=== PATIENT | female | born 2000 | race Caucasian/White ===

== ENCOUNTER 2018-07-10 20:25 | Emergency (ER) | payer SELFPAY ==
[2018-07-10 20:30] VITALS: BP 119/93; PULSE 85; RESP 20; TEMP 37; O2SAT 98
--- NOTE | 2018-07-10 20:36 | W.ED.GENAD ---
Discharge Plan Disposition Patient Disposition: HOME Condition: Fair Discharge Details Chief Complaint: [employer] Clinical Impression: Miscarriage, threatened, early Primary Care Provider: Mitch Huber ED Provider: Brie Keller Home Meds and New Rx's Prescriptions: No Action No Known Home Meds RF: 0 Discharge Instructions Additional Instructions: Please go from here to [facility] where Dr. Warner will preform your ultrasound. You blood type is B negative, Rhogam given while here. Quantitative HcG >48,000. Referrals: Mitch Huber PA [Primary Care Provider] - AURELIO WARNER [ NON-[facility] STAFF PHYSICIAN] - ([phone]) Discharge Data Discharge Date/Time-TO BE ENTERED AT DEPARTURE: 07/10/18 22:56 Medical Decision Making Patient presents today with chief complaint of bleeding in the first trimester . She is endorsing a light bleeding and mild, central cramping. Reports that she has changed a thin pad every few hours. Reports that the bleeding is chlorinator than a typical menses. No pain is elicited on exam. No pain in her back. She is afebrile with stable vital signs. Concern for possible threatened miscarriage versus ectopic . Given the time of night, I am concerned that may not be able to obtain a ultrasound. Will obtain type and screen, CBC, CMP on quantitative hCG. Vaginal exam was performed, small amount of blood was noted in the vaginal vault. No adnexal segment tenderness on bimanual exam. No active bleeding noted from the cervical os. Labs significant for Quantitative HcG >48,000. Patient B negative. Consulted with Dr. Warner at [facility] as patient receives care there. He advised that he is able to do the US tonight at their facility and advised that patient go for imaging. Discussed with the patient who agrees to going there tonight for imaging. Dr. Warner and I discussed patient's blood type, he advised that we give Rhogam dosing here. Patient given IM Rhogam. Will go from here to the [facility] OB unit to have US with Dr. Warner. All of her questions and concerns were addressed, she is in agreement with this plan. HPI General Mode of arrival: ambulatory. Date/Time Provider Initiated Documentation: 07/10/18 20:27. Limitations to Documentation: no limitations. Information obtained by: patient and family. HPI Narrative: Patient is a 17-year-old female presenting today with chief complaint of bleeding in the first trimester . She reports that she is approximately 7 weeks gestation. Had a positive UPT at [facility] in [place] but is not yet had dating ultrasound. Reports that 2 days ago she began noting some mild cramping and light bleeding. Reports that this is persisted but the bleeding has slightly increased today. Still states that the bleeding is less than a period. States the pain is mild and centrally located. It does not radiate into the back. No fevers or chills. Endorses nausea but states that she has been having the nausea along with the . Denies any vomiting. Patient was taking oral contraceptives obtained that she became . Patient has history of gastroparesis from when she was . No other abdominal surgeries. Reports she has chronic issues with constipation but no acute change in bowel habits. No history of ectopic pregnancies. This is patient's first , is unplanned. Related Data Home Medications Medication Instructions Recorded Confirmed Unknown [No Known Home Meds] 07/10/18 07/10/18 Allergies Allergy/AdvReac Type Severity Reaction Status Date / Time No Known Allergies Allergy Unverified 07/10/18 20:33 General Stated Complaint: [employer] SERVANDO: 3 Review of Systems Constitutional Reports as per HPI, Denies chills, Denies fatigue, Denies fever(s) and Denies poor appetite Cardiovascular Denies chest pain and Denies dyspnea Respiratory Denies dyspnea Gastrointestinal Reports as per HPI Genitourinary Reports as per HPI, Denies dysuria, Denies flank pain and Denies urinary urgency Musculoskeletal Reports as per HPI and Denies back pain Integumentary/Breasts Denies rash Endocrine Denies fatigue [facility] Social History Smoking/Tobacco Use Status: Never Exam Const General: cooperative, healthy appearing, comfortable, no acute distress, well developed and well groomed Nutritional Appearance: average body habitus and well nourished Orientation: alert and awake Eyes General: appearance normal, both eyes and all related structures Resp Effort & Inspection: normal respiratory effort, able to speak in complete sentences and no respiratory distress Auscultation: clear to auscultation bilaterally Cardio Rate: regular rate Rhythm: regular rhythm Heart Sounds: S1 normal and S2 normal GI Inspection: abnormal to inspection (patient has a scarred defect centrally, 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 No other incisions noted. ) Palpation: soft, no hepatosplenomegaly, no aortic enlargement, not firm, no guarding, no hernias, not rigid and nontender Auscultation: normal bowel sounds External Female Exam: external appearance normal, normal appearance of the urethra, no tenderness externally, no external swelling, no lesions and No urethral discharge Speculum Exam - Vagina: no lacerations, no lesions, vaginal bleeding (small amount of brown blood noted in the vaginal vault) and No tissue present in vagina Speculum Exam - Cervix: normal appearance of the cervix, No cervical os open, closed cervix and normal vervical discharge Bimanual Exam- Vagina & Uterus: normal bimanual exam, normal cervical palpation (patient is noted to have long cervix), uterus non-tender, no cervical motion tenderness and not enlarged Bimanual Exam- Adnexa, other: normal adnexae, no adnexal masses, no tenderness and No cul-de-sac tenderness OB/External & Speculum: no tissue noted in vagina, No cervical os open and vaginal bleeding (small amount of brown blood noted in the vaginal vault) Back/Spine/Pelvis Back: no CVA tenderness Skin General skin exam: no rashes or lesions noted Lesions: no lesions Rashes: no rashes Neuro General: alert and awake Cognition: normal cognition Speech: speech normal Gait: normal gait Psych Appearance: grossly normal and well kempt Mental Status: mental status grossly normal Speech and Movement: speech and movement normal Mood: congruent mood Affect: normal affect Course Vital Signs Temperature 37 C 07/10/18 20:30 Pulse 85 07/10/18 20:30 Respiratory Rate 20 07/10/18 20:30 Blood Pressure 119/93 H 07/10/18 20:30 Pulse Oximetry 98 07/10/18 20:30 Temperature 37 C 07/10/18 20:30 Temperature Source Skin 07/10/18 20:30 Pulse 85 07/10/18 20:30 Respiratory Rate 07/10/18 20:30 Respiratory Effort Non-Labored 07/10/18 20:32 Blood Pressure 119/93 H 07/10/18 20:30 Blood Pressure Position Sitting 07/10/18 20:30 Pulse Oximetry 98 07/10/18 20:30 Oxygen Delivery Method Room Air 07/10/18 20:30 Oxygen Flow Rate 0 07/10/18 20:30 Pain Level 2 07/10/18 20:30
[2018-07-10 21:17] LABS: Abs Immature Grans 0.02 k/cumm (0.0-0.09); Absolute Basophil Count 0.04 k/cumm (0.0-0.2); Absolute Eosinophil Count 0.08 k/cumm (0.0-0.7); Absolute Lymphocyte Count 2.39 k/cumm (1.2-3.4); Absolute Monocyte Count 0.87 k/cumm (0.11-0.7); Basophils % 0.5; Eosinophils % 0.9; HCT 41.9 % (36.0-46.0); HGB 14.3 g/dL (12.0-15.5); Immature Grans % 0.2; Lymphocytes % 27.5; Mean Corp. HGB Concentration 34.1 g/dL (32.0-36.0); Mean Corpuscular Hemoglobin 28.4 pg (27.0-33.0); Mean Corpuscular Volume 83.3 fL (80-95); Mean Platelet Volume 10.3 fL (8.0-11.0); Neutrophils % 60.9; Platelet Count 277 x1000/uL (130-400); RBC 5.03 m/cumm (4.00-5.20); RBC Distribution Width 13.6 % (11.7-14.6)
--- NOTE | 2018-07-10 21:37 | ED.GENADUL_ITS ---
Discharge Plan Disposition Patient Disposition: HOME Condition: Fair Discharge Details Chief Complaint: [employer] Clinical Impression: Miscarriage, threatened, early Primary Care Provider: Mitch Huber ED Provider: Brie Keller Home Meds and New Rx's Prescriptions: No Action No Known Home Meds RF: 0 Discharge Instructions Additional Instructions: Please go from here to [facility] where Dr. Warner will preform your ultrasound. You blood type is B negative, Rhogam given while here. Quantitative HcG >48,000. Referrals: Mitch Huber PA [Primary Care Provider] - AURELIO WARNER [ NON-[facility] STAFF PHYSICIAN] - ([phone]) Discharge Data Discharge Date/Time-TO BE ENTERED AT DEPARTURE: 07/10/18 22:56 Medical Decision Making Patient presents today with chief complaint of bleeding in the first trimester . She is endorsing a light bleeding and mild, central cramping. Reports that she has changed a thin pad every few hours. Reports that the bleeding is medical lead than a typical menses. No pain is elicited on exam. No pain in her back. She is afebrile with stable vital signs. Concern for possible threatened miscarriage versus ectopic . Given the time of night, I am concerned that may not be able to obtain a ultrasound. Will obtain type and screen, CBC, CMP on quantitative hCG. Vaginal exam was performed, small amount of blood was noted in the vaginal vault. No adnexal segment tenderness on bimanual exam. No active bleeding noted from the cervical os. Labs significant for Quantitative HcG >48,000. Patient B negative. Consulted with Dr. Warner at [facility] as patient receives care there. He advised that he is able to do the US tonight at their facility and advised that patient go for imaging. Discussed with the patient who agrees to going there tonight for imaging. Dr. Warner and I discussed patient's blood type, he advised that we give Rhogam dosing here. Patient given IM Rhogam. Will go from here to the [facility] OB unit to have US with Dr. Warner. All of her questions and concerns were addressed, she is in agreement with this plan. HPI General Mode of arrival: ambulatory . Date/Time Provider Initiated Documentation: 07/10/18 20:27 . Limitations to Documentation: no limitations . Information obtained by: patient and family . HPI Narrative: Patient is a 17-year-old female presenting today with chief complaint of bleeding in the first trimester . She reports that she is approximately 7 weeks gestation. Had a positive UPT at [facility] in [place] but is not yet had dating ultrasound. Reports that 2 days ago she began noting some mild cramping and light bleeding. Reports that this is persisted but the bleeding has slightly increased today. Still states that the bleeding is less than a period. States the pain is mild and centrally located. It does not radiate into the back. No fevers or chills. Endorses nausea but states that she has been having the nausea along with the . Denies any vomiting. Patient was taking oral contraceptives obtained that she became . Patient has history of gastroparesis from when she was . No other abdominal surgeries. Reports she has chronic issues with constipation but no acute change in bowel habits. No history of ectopic pregnancies. This is patient's first , is unplanned. Related Data Home Medications Medication Instructions Recorded Confirmed Unknown [No Known Home Meds] 07/10/18 07/10/18 Allergies Allergy/AdvReac Type Severity Reaction Status Date / Time No Known Allergies Allergy Unverified 07/10/18 20:33 General Stated Complaint: [employer] SERVANDO: 3 Review of Systems Constitutional Reports as per HPI, Denies chills, Denies fatigue, Denies fever(s) and Denies poor appetite Cardiovascular Denies chest pain and Denies dyspnea Respiratory Denies dyspnea Gastrointestinal Reports as per HPI Genitourinary Reports as per HPI, Denies dysuria, Denies flank pain and Denies urinary urgency Musculoskeletal Reports as per HPI and Denies back pain Integumentary/Breasts Denies rash Endocrine Denies fatigue [facility] Social History Smoking/Tobacco Use Status: Never Exam Const General: cooperative, healthy appearing, comfortable, no acute distress, well developed and well groomed Nutritional Appearance: average body habitus and well nourished Orientation: alert and awake Eyes General: appearance normal, both eyes and all related structures Resp Effort & Inspection: normal respiratory effort, able to speak in complete sentences and no respiratory distress Auscultation: clear to auscultation bilaterally Cardio Rate: regular rate Rhythm: regular rhythm Heart Sounds: S1 normal and S2 normal GI Inspection: abnormal to inspection (patient has a scarred defect centrally, 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 No other incisions noted. ) Palpation: soft, no hepatosplenomegaly, no aortic enlargement, not firm, no guarding, no hernias, not rigid and nontender Auscultation: normal bowel sounds External Female Exam: external appearance normal, normal appearance of the urethra, no tenderness externally, no external swelling, no lesions and No urethral discharge Speculum Exam - Vagina: no lacerations, no lesions, vaginal bleeding (small amount of brown blood noted in the vaginal vault) and No tissue present in vagina Speculum Exam - Cervix: normal appearance of the cervix, No cervical os open, closed cervix and normal vervical discharge Bimanual Exam- Vagina & Uterus: normal bimanual exam, normal cervical palpation (patient is noted to have long cervix), uterus non-tender, no cervical motion tenderness and not enlarged Bimanual Exam- Adnexa, other: normal adnexae, no adnexal masses, no tenderness and No cul-de-sac tenderness OB/External & Speculum: no tissue noted in vagina, No cervical os open and vaginal bleeding (small amount of brown blood noted in the vaginal vault) Back/Spine/Pelvis Back: no CVA tenderness Skin General skin exam: no rashes or lesions noted Lesions: no lesions Rashes: no rashes Neuro General: alert and awake Cognition: normal cognition Speech: speech normal Gait: normal gait Psych Appearance: grossly normal and well kempt Mental Status: mental status grossly normal Speech and Movement: speech and movement normal Mood: congruent mood Affect: normal affect Course Vital Signs Temperature 37 C 07/10/18 20:30 Pulse 85 07/10/18 20:30 Respiratory Rate 20 07/10/18 20:30 Blood Pressure 119/93 H 07/10/18 20:30 Pulse Oximetry 98 07/10/18 20:30 Temperature 37 C 07/10/18 20:30 Temperature Source Skin 07/10/18 20:30 Pulse 85 07/10/18 20:30 Respiratory Rate 07/10/18 20:30 Respiratory Effort Non-Labored 07/10/18 20:32 Blood Pressure 119/93 H 07/10/18 20:30 Blood Pressure Position Sitting 07/10/18 20:30 Pulse Oximetry 98 07/10/18 20:30 Oxygen Delivery Method Room Air 07/10/18 20:30 Oxygen Flow Rate 0 07/10/18 20:30 Pain Level 2 07/10/18 20:30
[2018-07-10 21:51] LABS: ALT 17 U/L (12-78); AST 10 U/L (15-37); Albumin 3.9 g/dL (3.4-5.0); Alkaline Phosphatase 89 U/L (46-116); Anion Gap 12.4 mmol/L (3-11); BUN 12 mg/dL (7-18); Bilirubin, Total 0.2 mg/dL (0.2-1.0); CO2 24.6 mmol/L (21.0-32.0); CREATININE 0.73 mg/dL (0.55-1.02); Chloride 104 mmol/L (98-107); Glucose 99 mg/dL (70-100); Potassium 3.4 mmol/L (3.5-5.1); Sodium 141 mmol/L (136-145); Total Protein 7.5 g/dL (6.4-8.2)
[2018-07-10 21:54] LABS: Bilirubin Negative (Negative); Blood Moderate (Negative); Clarity Clear; Glucose Negative (Negative); Ketones Trace mg/dL (Negative); Leukocyte Esterase Trace (Negative); Nitrite Negative (Negative); Specific Gravity >= 1.030 (1.005-1.025); Urobilinogen 0.2 EU/dL (Up TO 0.2); pH 5.5 (5-8)
[2018-07-10 21:57] LABS: HCG Quant, Pregnancy 48409 mIU/mL (1-3)
[2018-07-10 22:19] LABS: Bacteria Few HPF (Negative); C & S Indicated? Yes; Casts Negative LPF (Negative); Crystals Negative HPF (Negative); Epithelial Cells Rare HPF (Negative); Mucus Negative (Negative); Other Cells Negative (Negative)
[2018-07-10 22:56] VITALS: BP 119/93; PULSE 85; RESP 20; TEMP 37; O2SAT 98
== END 2018-07-10 22:56 | disposition home or self-care (01) ==
PROVIDERS: Emergency Provider Physician Assistant; PCP Physician Assistant
DX: O20.0 Threatened abortion (principal); Z29.13 Encounter for prophylactic Rho(D) immune globulin; Z3A.01 Less than 8 weeks gestation of pregnancy
CPT/HCPCS: 36415; 80053; 86850; 86900; 86901; 90384; 99284; 81003; 81015; 84702; 85025; 87086; 99283; J3490

== ENCOUNTER 2018-07-17 22:22 | Emergency (ER) | payer SELFPAY ==
[2018-07-17 22:30] VITALS: BP 128/80; PULSE 103; RESP 20; TEMP 36.2; O2SAT 98
--- NOTE | 2018-07-17 22:43 | W.ED.GENAD ---
Discharge Plan Disposition Patient Disposition: HOME Condition: Stable Discharge Details Chief Complaint: Abd Prob Clinical Impression: Nausea and vomiting in Primary Care Provider: Mitch Huber ED Provider: Lenin Kim Home Meds and New Rx's Prescriptions: New ondansetron [Zofran ODT] 4 mg tablet,disintegrating 4 mg PO TID PRN (Reason: nausea and vomiting) 5 Days Qty: 20 RF: 0 Continue [id number] fumarate-FA [] 28-800 mg-mcg Tablet RF: 0 Discharge Instructions Instructions: Nausea and Vomiting in (ED) Additional Instructions: follow up as scheduled with your OBGYN provider on Sunday if you have persistent vomit despite the medication, or severe worsening of pain return to the emergency department Discharge Data Discharge Physician: Lenin Kim Medical Decision Making 17 yo who is currently 8 weeks with her first , who comes in with intermittent abdominal cramping since 2pm today and nausea and one episode of vomit today, states she had diarrhea yesterday but none today. She states she has intermittent general abdominal cremping, has no pain on exam now. On bedside u/s has fhr of 100, normal gallbladder with no stones, no bowel distention. I suspect she has a gastroenteritis vs food related illness. Given no distention, hyperactive bowel sounds and has normal BM's today doubt sbo at this carol and given no pain on exam now doubt other pathology such as appendicitis or torsion. will treat her nausea and reassess. nausea improved and she is tolerating PO, she states she does have some cramping when she drinks but still has no pain on abodminal exam. do not feel imaging or lab work indicated given reassuring exam without tenderness. Advised f/u with pcp within a week and return precautions given. Differential Diagnosis food related illness, gastroenteritis, torsion, cyst HPI General Date/Time Provider Initiated Documentation: 07/17/18 22:24. Limitations to Documentation: no limitations. Information obtained by: patient. History of Present Illness 17 year old F presents to the emergency department with the chief complaint of abdominal cramping, described as moderate, with intensity rated at 3. Quality is described as other (cramping), and is localized to the abdomen. Patient reports no radiation. Patient started experiencing this hour(s) (8) and it has been intermittent. No relieving factors improve symptom(s), No exacerbating factors reported . Patient notes nausea/vomiting. Patient did receive the following treatments prior to arrival, none Related Data Home Medications Medication Instructions Recorded Confirmed [id number] fumarate-FA 07/17/18 [] ondansetron [Zofran ODT] 4 mg PO TID PRN 5 Days #20 tab 07/17/18 Previous Rx's Medication Instructions Recorded ondansetron [Zofran ODT] 4 mg PO TID PRN 5 Days #20 tab 07/17/18 Allergies Allergy/AdvReac Type Severity Reaction Status Date / Time No Known Allergies Allergy Unverified 07/10/18 20:33 General Stated Complaint: Abd Prob SERVANDO: 3 Review of Systems Review of Systems All systems reviewed & are unremarkable except as noted in HPI and below Constitutional Denies chills, Denies fever(s) and Denies weakness Eyes Denies loss of vision ENT Denies change in voice Cardiovascular Denies chest pain and Denies dyspnea Respiratory Denies dyspnea Gastrointestinal Reports abdominal pain, Reports nausea and Reports vomiting Genitourinary Denies dysuria Musculoskeletal Denies joint swelling Integumentary/Breasts Denies rash Neurologic Denies loss of vision and Denies weakness Psychiatric Denies depression Endocrine Denies cold intolerance and Denies heat intolerance Allergic/Immunologic Reports urticaria PFSH Social History Smoking/Tobacco Use Status: Never Exam Const General: no acute distress Orientation: alert HENOR Head: normal to inspection Ears: external ears normal General nose exam: external nose normal Mouth: moist mucous membranes Eyes General: appearance normal, both eyes and all related structures Neck Neck: normal visual inspection Resp Effort & Inspection: normal respiratory effort and able to speak in complete sentences Cardio Rate: regular rate GI Palpation: soft and nontender Auscultation: hyperactive bowel sounds Skin General skin exam: no rashes or lesions noted Neuro General: alert and oriented x3 Extrem General: normal to inspection Psych Mental Status: mental status grossly normal Course Vital Signs Temperature 36.2 C L 07/17/18 22:30 Pulse 103 H 07/17/18 22:30 Respiratory Rate 20 07/17/18 22:30 Blood Pressure 128/80 07/17/18 22:30 Pulse Oximetry 98 07/17/18 22:30 Temperature 36.2 C L 07/17/18 22:30 Temperature Source Temporal Artery Scan 07/17/18 22:30 Pulse 103 H 07/17/18 22:30 Respiratory Rate 20 07/17/18 22:30 Respiratory Effort 07/17/18 22:33 Blood Pressure 128/80 07/17/18 22:30 Blood Pressure Position Sitting 07/17/18 22:30 Pulse Oximetry 98 07/17/18 22:30 Oxygen Delivery Method Room Air 07/17/18 22:30 Oxygen Flow Rate 0 07/17/18 22:30 Pain Level 5 07/17/18 22:34
--- NOTE | 2018-07-17 22:46 | ED.GENADUL_ITS ---
Discharge Plan Disposition Patient Disposition: HOME Condition: Stable Discharge Details Chief Complaint: Abd Prob Clinical Impression: Nausea and vomiting in Primary Care Provider: Mitch Huber ED Provider: Lenin Kim Home Meds and New Rx's Prescriptions: New ondansetron [Zofran ODT] 4 mg tablet,disintegrating 4 mg PO TID PRN (Reason: nausea and vomiting) 5 Days Qty: 20 RF: 0 Continue [id number] fumarate-FA [] 28-800 mg-mcg Tablet RF: 0 Discharge Instructions Instructions: Nausea and Vomiting in (ED) Additional Instructions: follow up as scheduled with your OBGYN provider on Sunday if you have persistent vomit despite the medication, or severe worsening of pain return to the emergency department Discharge Data Discharge Physician: Lenin Kim Medical Decision Making 17 yo who is currently 8 weeks with her first , who comes in with intermittent abdominal cramping since 2pm today and nausea and one episode of vomit today, states she had diarrhea yesterday but none today. She states she has intermittent general abdominal cremping, has no pain on exam now. On bedside u/s has fhr of 100, normal gallbladder with no stones, no bowel distention. I suspect she has a gastroenteritis vs food related illness. Given no distention, hyperactive bowel sounds and has normal BM's today doubt sbo at this carol and given no pain on exam now doubt other pathology such as appendicitis or torsion. will treat her nausea and reassess. nausea improved and she is tolerating PO, she states she does have some cramping when she drinks but still has no pain on abodminal exam. do not feel imaging or lab work indicated given reassuring exam without tenderness. Advised f/u with pcp within a week and return precautions given. Differential Diagnosis food related illness, gastroenteritis, torsion, cyst HPI General Date/Time Provider Initiated Documentation: 07/17/18 22:24 . Limitations to Documentation: no limitations . Information obtained by: patient . History of Present Illness 17 year old F presents to the emergency department with the chief complaint of abdominal cramping, described as moderate, with intensity rated at 3. Quality is described as other (cramping), and is localized to the abdomen. Patient reports no radiation. Patient started experiencing this hour(s) (8) and it has been intermittent. No relieving factors improve symptom(s), No exacerbating factors reported . Patient notes nausea/vomiting. Patient did receive the following treatments prior to arrival, none Related Data Home Medications Medication Instructions Recorded Confirmed [id number] fumarate-FA 07/17/18 [] ondansetron [Zofran ODT] 4 mg PO TID PRN 5 Days #20 tab 07/17/18 Previous Rx's Medication Instructions Recorded ondansetron [Zofran ODT] 4 mg PO TID PRN 5 Days #20 tab 07/17/18 Allergies Allergy/AdvReac Type Severity Reaction Status Date / Time No Known Allergies Allergy Unverified 07/10/18 20:33 General Stated Complaint: Abd Prob SERVANDO: 3 Review of Systems Review of Systems All systems reviewed & are unremarkable except as noted in HPI and below Constitutional Denies chills, Denies fever(s) and Denies weakness Eyes Denies loss of vision ENT Denies change in voice Cardiovascular Denies chest pain and Denies dyspnea Respiratory Denies dyspnea Gastrointestinal Reports abdominal pain, Reports nausea and Reports vomiting Genitourinary Denies dysuria Musculoskeletal Denies joint swelling Integumentary/Breasts Denies rash Neurologic Denies loss of vision and Denies weakness Psychiatric Denies depression Endocrine Denies cold intolerance and Denies heat intolerance Allergic/Immunologic Reports urticaria PFSH Social History Smoking/Tobacco Use Status: Never Exam Const General: no acute distress Orientation: alert HENRI Head: normal to inspection Ears: external ears normal General nose exam: external nose normal Mouth: moist mucous membranes Eyes General: appearance normal, both eyes and all related structures Neck Neck: normal visual inspection Resp Effort & Inspection: normal respiratory effort and able to speak in complete sentences Cardio Rate: regular rate GI Palpation: soft and nontender Auscultation: hyperactive bowel sounds Skin General skin exam: no rashes or lesions noted Neuro General: alert and oriented x3 Extrem General: normal to inspection Psych Mental Status: mental status grossly normal Course Vital Signs Temperature 36.2 C L 07/17/18 22:30 Pulse 103 H 07/17/18 22:30 Respiratory Rate 20 07/17/18 22:30 Blood Pressure 128/80 07/17/18 22:30 Pulse Oximetry 98 07/17/18 22:30 Temperature 36.2 C L 07/17/18 22:30 Temperature Source Temporal Artery Scan 07/17/18 22:30 Pulse 103 H 07/17/18 22:30 Respiratory Rate 20 07/17/18 22:30 Respiratory Effort 07/17/18 22:33 Blood Pressure 128/80 07/17/18 22:30 Blood Pressure Position Sitting 07/17/18 22:30 Pulse Oximetry 98 07/17/18 22:30 Oxygen Delivery Method Room Air 07/17/18 22:30 Oxygen Flow Rate 0 07/17/18 22:30 Pain Level 5 07/17/18 22:34
[2018-07-17] MEDS: Ondansetron O.D.T. 4 MG TABEF PO (22:48)
[2018-07-17 23:39] VITALS: BP 117/74; PULSE 90; RESP 18; TEMP 37.1; O2SAT 97
== END 2018-07-17 23:41 | disposition home or self-care (01) ==
PROVIDERS: Emergency Provider Emergency Medicine; PCP Physician Assistant
DX: O21.9 Vomiting of pregnancy, unspecified (principal); Z3A.12 12 weeks gestation of pregnancy; O26.891 Other specified pregnancy related conditions, first trimester
CPT/HCPCS: 99283